=== PATIENT | male | born 1945 | race Caucasian/White ===

== ENCOUNTER → 2017-03-09 | Outpatient (CLI) | payer MEDICARE, OTHER ==
[2017-03-09 12:44] LABS: CREATININE 1.2 mg/dL (0.6-1.3)
== END | disposition disaster alternative care site (69) ==
LOC: GLAB 11:53
PROVIDERS: Neurological Surgery
DX: D49.6 Neoplasm of unspecified behavior of brain (principal); D32.0 Benign neoplasm of cerebral meninges
CPT/HCPCS: A9577